=== PATIENT | male | born 1965 | race Hispanic/Latino ===

== ENCOUNTER 2016-09-02 20:02 | Emergency (ER) | payer OTHER ==
--- NOTE | 2016-09-02 20:50 | Emergency Department Report ---
Chief Complaint: Upper Respiratory Infection Stated Complaint: FLU SX Time Seen by Provider: 09/02/16 20:47 - HPI History of Present Illness: PT states he has been sick since Wednesday. PT states he has been exposed to sick contacts at work. Pt states he has had cough x 2 days. - ROS Review of Systems: + chills - st + cough -n/v - Exam Vital Signs: Vital Signs 09/02/16 20:17 Temperature 98.8 F Pulse Rate 103 H Respiratory 16 Rate Blood Pressure 115/106 O2 Sat by Pulse 99 Oximetry Physical Exam: pt looks well, non toxic. lungs ct. tachycardic MSE screening note: Focused history and physical exam performed. Due to findings the following was ordered: xr, labs ED Disposition for MSE Condition: Stable
--- NOTE | 2016-09-03 00:12 | Emergency Department Report ---
HPI - General Chief Complaint: Upper Respiratory Infection Time Seen by Provider: 09/02/16 20:47 - HPI HPI: PT states he has been sick since Wednesday. PT states he has been exposed to sick contacts at work. Pt states he has had cough x 2 days. Patient denies any fever or chills. She reports nasal congestion and runny nose and reports that he feels like his ears are clogged. He reports this has been going on for the last 10 days and then he developed coughing and feeling sick over the last 2 days. DENIES any shortness of breath or chest pain. Blood pressure is 115/106 and patient said that he has been told several times that he has elevated blood pressure but he didn't go to the doctor to get it checked out. He said he has a doctor that he picked out for his insurance but he has not gone to see the doctors yet. ED Past Medical Hx - Past Medical History Previous Medical History?: Yes Hx Kidney Stones: Yes - Surgical History Past Surgical History?: No - Social History Smoking Status: Never Smoker Substance Use Type: None - Medications Home Medications: Home Medications Medication Instructions Recorded Confirmed Last Taken Type Azithromycin [Zithromax Z-TERESA] 250 mg PO DAILY #6 tab 09/03/16 Unknown Rx Fluticasone [Flonase] 1 spray NS QDAY #1 bottle 09/03/16 Unknown Rx Loratadine [Claritin] 10 mg PO DAILY #14 tablet 09/03/16 Unknown Rx predniSONE [Deltasone] 50 mg PO QDAY #5 tab 09/03/16 Unknown Rx ED Review of Systems ROS: Stated complaint: FLU SX Other details as noted in HPI Comment: All other systems reviewed and negative Constitutional: chills, fever Eyes: denies: eye pain, eye discharge ENT: congestion. denies: throat pain, epistaxis Respiratory: cough. denies: shortness of breath, SOB with exertion, SOB at rest , stridor, wheezing Cardiovascular: denies: chest pain, palpitations, edema, syncope Gastrointestinal: denies: abdominal pain, nausea, vomiting, diarrhea, constipation Musculoskeletal: denies: back pain Skin: denies: rash Neurological: denies: headache, weakness, numbness, paresthesias, confusion, abnormal gait, vertigo Physical Exam - Physical Exam Vital Signs: Vital Signs 09/02/16 20:17 Temperature 98.8 F Pulse Rate 103 H Respiratory 16 Rate Blood Pressure 115/106 O2 Sat by Pulse 99 Oximetry General: This is a 51-year-old patient well-nourished well-developed in no acute distress. Physical Exam: Head: Normocephalic atraumatic Mouth: Moist, no pharyngeal exudate or erythema. Uvula is midline and oral airway is patent. No gingival enlargement or dental tenderness. No facial swelling. No peritonsillar abscesses. Neck: Supple, no C-spine tenderness, no tracheal deviation. Nontender to palpate. no adenopathy Ears: Bilateral TMs congested without erythema .bilateral EAC without any redness swelling or drainage Eyes: Bilateral pupils equal and reactive to light, bilateral EOM intact. Bilateral sclera and conjunctiva without injection. Normal accommodation Nose: Mucosa moist, positive congestion with erythema. Positive clear drainage. maxillary and frontal sinus non-tender to palpate. Lungs: Clear to auscultate bilaterally; No CCE. +2 pulses. No neurovascular compromise, dRY COUGH Cardiovascular: S1-S2, tachycardic at 103, regular rhythm. No murmurs. Skin: clean Dry and intact no rash no lesions Psych: Normal mood and behavior ED Course Vital Signs 09/02/16 20:17 Temperature 98.8 F Pulse Rate 103 H Respiratory 16 Rate Blood Pressure 115/106 O2 Sat by Pulse 99 Oximetry Vital Signs 09/02/16 09/03/16 20:17 00:14 Temperature 98.8 F Pulse Rate 103 H 96 H Respiratory 16 Rate Blood Pressure 115/106 O2 Sat by Pulse 99 Oximetry - Reevaluation(s) Reevaluation #1: 09/03/16 00:16 pT had uneventful ED stay. Heart rate is below 100. Patient has been told several times that his blood pressure is elevated but he has not gone to his primary care physician for follow-up. ED Medical Decision Making - Medical Decision Making ED course: I Discussed withpatient that he has a sinus infection and will be treated with antibiotic, their records and Flonase. Also told him that he can take Claritin [id number]. Patient was understanding of diagnosis and treatment plan. I discussed with him that his blood pressure is elevated and he will need to keep a log of his blood pressure and called his primary care physician to schedule an appointment for further evaluation and treatment. She voiced understanding and discharged home with prescription for prednisone, Z- Teresa and Flonase along with Claritin. Critical care attestation.: If time is entered above; I have spent that time in minutes in the direct care of this critically ill patient, excluding procedure time. ED Disposition Clinical Impression: Elevated blood pressure reading Sinusitis, acute Qualifiers: Sinusitis location: unspecified location Recurrence: not specified as recurrent Qualified Code(s): J01.90 - Acute sinusitis, unspecified Disposition: DISCHARGED TO HOME OR SELFCARE Is pt being admited?: No Does the pt Need Aspirin: No Condition: Stable Instructions: Sinusitis (ED), Hypertension (ED) Additional Instructions: Please keep a log a few blood pressure and takes U primary care physician office for follow-up. You Told me that you have a primary care doctor and you have not seen him so please call tomorrow to schedule an appointment Prescriptions: Azithromycin [Zithromax Z-TERESA] 250 mg PO DAILY #6 tab Fluticasone [Flonase] 1 spray NS QDAY #1 bottle Loratadine [Claritin] 10 mg PO DAILY #14 tablet predniSONE [Deltasone] 50 mg PO QDAY #5 tab Referrals: PRIMARY CARE,MD [Primary Care Provider] - 3-5 Days Forms: Accompanied Note, Work/School Release Form(ED)
[2016-09-03 00:30] VITALS: BP 139/99
== END 2016-09-03 00:29 | disposition home or self-care (01) ==
LOC: ED 20:02
DX: J01.90 Acute sinusitis, unspecified (principal); R03.0 Elevated blood-pressure reading, without diagnosis of hypertension
CPT/HCPCS: 99282